=== PATIENT | female | born 1955 | race African-American/Black ===

== ENCOUNTER 2017-09-17 15:17 | Emergency (ER) | payer OTHER ==
[~2017-09-17] VITALS: Ht 160 cm; Wt 106.1 kg
[~2017-09-17 15:17] MED LIST: ACID REDUCER200 MG PO; ADALAT PO; ADVIL200 M2 PO; AZITHROMYCIN 2250 MG PO; BENTYL20 MG PO; CARAFATE 11 GM/10 M1 PO; CITRATE OF MAG296 ML PO; COLACE100 MG PO; E-MYCIN250 MG PO; FLEXERIL PO; LISINOPRIL20 MG PO; MACROBID 100 M100 M1 PO; MEDROLDOSEPACK PO; MOBIC15 MG PO; MULTIPLE VITAM1 EAC1 PO; NAPROSYN500 MG PO; NIFEDIPINE20 MG PO; NORCO 5-325 TA1 EACH PO; NORFLEX100 MG PO; OMEPRAZOLE20 M2 PO; OXYCONTIN30 MG PO; OXYIR5 MG PO; PENICILLIN VK500 M1 PO; PERCOCET 5-3251 EACH PO; PERCOCET 7.5-31 EACH PO; PLAVIX 75 MG TA75 M1 PO; PREDNISONE 10 M10 M1 PO; PROZAC 20 MG20 M1 PO; REQUIP0.5 MG; RESTORIL7.5 MG; TYLENOL W/CODEI1 TA2 PO; VALIUM5 MG PO; VICODIN PO; VITAMIN B OR; VITAMIN D400 UNI1 PO; ZANTAC 150MG T150 M1 PO; ZOFRAN 4 MG ORAL4 M1 DIS; ZOFRAN ODT4 MG PO; ZOFRAN4 MG PO
[2017-09-17] MEDS ORDERED: HYDROCODONE-AP1 EAC6 PO (15:34)
[2017-09-17] MEDS ORDERED: BENADRYL25 MG PO (15:34)
[2017-09-17] MEDS ORDERED: HYDROCHLOROTHIA25 M2 PO (15:36)
[2017-09-17] MEDS ORDERED: VITAMIN D310000 UNIT PO (15:37)
[2017-09-17] MEDS ORDERED: AMLODIPINE BESY10 MG PO (15:37)
[2017-09-17] MEDS ORDERED: TRAZODONE HCL100 MG PO (15:37)
[2017-09-17] MEDS ORDERED: MOBIC7.5 MG PO (15:38)
[2017-11-27] MEDS ORDERED: NORCO 5-325 TA1 EACH PO (19:16)
== END 2017-09-17 16:02 | disposition home or self-care (01) ==
LOC: ER 15:17
DX: L72.8 Other follicular cysts of the skin and subcutaneous tissue (principal); M54.2 Cervicalgia; Z90.710 Acquired absence of both cervix and uterus; Z90.49 Acquired absence of other specified parts of digestive tract; I10 Essential (primary) hypertension; K21.9 Gastro-esophageal reflux disease without esophagitis; G47.30 Sleep apnea, unspecified; F32.9 Major depressive disorder, single episode, unspecified; E11.9 Type 2 diabetes mellitus without complications; Z88.1 Allergy status to other antibiotic agents; F17.210 Nicotine dependence, cigarettes, uncomplicated; Z88.5 Allergy status to narcotic agent; Z88.8 Allergy status to other drugs, medicaments and biological substances

== ENCOUNTER 2018-01-22 16:02 | Emergency (ER) | payer OTHER ==
[~2018-01-22] VITALS: Ht 160 cm; Wt 104.8 kg
[~2018-01-22 16:02] MED LIST changes: +AMLODIPINE BESY10 MG PO; +BENADRYL25 MG PO; +HYDROCHLOROTHIA25 M2 PO; +HYDROCODONE-AP1 EAC6 PO; +MOBIC7.5 MG PO; +TRAZODONE HCL100 MG PO; +VITAMIN D310000 UNIT PO
[2018-01-22 17:35] VITALS: BP 156/66
[2018-01-22] MEDS ORDERED: MOBIC7.5 MG PO (17:37)
[2018-01-22] MEDS ORDERED: PREDNISONE 20 M20 MG PO (17:37)
[2018-01-22] MEDS ORDERED: NORFLEX100 MG PO (17:37)
== END 2018-01-22 18:19 | disposition home or self-care (01) ==
LOC: ER 16:02
DX: M54.30 Sciatica, unspecified side (principal); M25.461 Effusion, right knee; M25.561 Pain in right knee; I10 Essential (primary) hypertension; E11.9 Type 2 diabetes mellitus without complications; K21.9 Gastro-esophageal reflux disease without esophagitis; F32.9 Major depressive disorder, single episode, unspecified; F17.210 Nicotine dependence, cigarettes, uncomplicated; Z90.89 Acquired absence of other organs; Z88.2 Allergy status to sulfonamides; Z88.5 Allergy status to narcotic agent; Z88.6 Allergy status to analgesic agent

== ENCOUNTER → 2018-02-17 | Outpatient (CLI) | payer OTHER ==
[~2018-02-17] MED LIST changes: +PREDNISONE 20 M20 MG PO
[2018-02-17 12:43] LABS: CREATININE 1.3 mg/dL (0.6-1.0)
== END ==
LOC: CAT 09:07
PROVIDERS: Surgery
DX: Q63.1 Lobulated, fused and horseshoe kidney (principal); M47.816 Spondylosis without myelopathy or radiculopathy, lumbar region; M48.061 Spinal stenosis, lumbar region without neurogenic claudication; E11.8 Type 2 diabetes mellitus with unspecified complications